=== PATIENT | female | born 1990 | race Caucasian/White ===

== ENCOUNTER 2016-11-24 17:55 | Emergency (ER) | payer MEDICAID ==
--- NOTE | 2016-11-24 19:08 | ED Physician Chart ---
Chief Complaint/HPI - Patient Information Date Seen:: 11/24/16 Time Seen:: 18:15 Chief Complaint:: Abdominal pain since about 4 am today. History of Present Illness:: c/o onset of RUQ abdominal pain since about 4 am today. Pain is characterized as sharp, intermittent and localized. No fever. Pt had nausea. No V/D. Last BM early today. Normal color/consistency. No hematochezia or melena. No lightheadedness. Abdominal pain can be aggravated with movements and improved with rest. Allergies:: Allergies Allergy/AdvReac Type Severity Reaction Status Date / Time No Known Allergies Allergy Verified 10/04/16 21:19 Vitals:: Vital Signs - 8 hr 11/24/16 11/24/16 18:33 18:50 Temp 99.2 F HR 100 81 RR 21 16 BP 170/90 138/93 O2 Sat % 100 Historian:: Patient Family MD/PCP:: unknown LMP:: 11/23/16 Review:: Nurse's Note Reviewed Review of Systems - Review of Systems General/Constitutional: No fever, No chills, No weight loss, No weakness, No diaphoresis, No edema, No loss of appetite Skin: No skin lesions, No rash, No bruising Head: No headache, No light-headedness Eyes: No loss of vision, No pain, No diplopia ENT: No earache, No nasal drainage, No sore throat, No tinnitus Neck: No neck pain, No swelling, No thyromegaly, No stiffness, No mass noted Cardio Vascular: No chest pain, No palpitations, No PND, No orthopnea, No edema Pulmonary: No SOB, No cough, No sputum, No wheezing GI: No nausea, No vomiting, No diarrhea, Pain, No melena, No hematochezia, No constipation, No hematemesis G/U: No dysuria, No frequency, No hematuria Orchestra Leader: No vaginal discharge, No abnormal vaginal bleed Musculoskeletal: No bone or joint pain, No back pain, No muscle pain Endocrine: No polyuria, No polydipsia Psychiatric: No prior psych history Hematopoietic: No bruising, No lymphadenopathy Allergic/Immuno: No urticaria, No angioedema Neurological: No syncope, No focal symptoms, No weakness, No paresthesia, No headache, No seizure, No dizziness, No confusion, No vertigo Past Medical History - Past Medical History Past Medical History: No significant medical hx Family History: Diabetes Melitus (mother, MGM.) Social History: Non Smoker, No Alcohol, No Drug Use, Single, Other (lives with her children.) 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 Surgical History: None Psychiatricy History: None Medication: Reviewed Family Medical History - Family Member Mother History Unknown: Yes Hx Family Diabetes: Yes Physical Exam - Physical Examination General/Constitutional: Awake, Well-developed, well-nourished, Alert, No distress, GCS 15, Non-toxic appearing, Ambulatory Other Gen/Cons comments:: Breathes comfortably, speaks clearly, and ambulates without difficulty. Head: Atraumatic Eyes: Lids, conjuctiva normal, PERRL, EOMI Other Eyes comments:: Anicteric sclera. Skin: Nl inspection, No rash, No skin lesions, No ecchymosis, Well hydrated, No lymphadenopathy ENMT: External ears, nose nl, Nasal exam nl, Lips, teeth, gums nl, Oropharynx nl Neck: Nontender, Full ROM w/o pain, No JVD, No nuchal rigidity, No mass, No stridor Respiratory: Nl effort/Exclusion, Clear to Auscultation, No Wheeze/Rhonchi/Rales Cardio Vascular: RRR, No murmur, gallop, rubs, NL S1 S2 GI: No organomegaly, No hernia, Normal BS's, Nondistended, No mass/bruits, No McBurney tenderness Other GI comments:: Mild vague tenderness at RUQ. No R/G. +/- Crawford's sign. Negative Aguero Fung's or Bhaskar's sign. Abdomen is obese but soft. Pt declined rectal exam as she already feels better. : No CVA tenderness Other comments:: Pt declined pelvic exam as she feels better already. Extremities: No tenderness or effusion, Full ROM, normal strength in all extremities, No edema, Normal digits & nails Neuro/Psych: Alert/oriented (oriented x 3), Judgement/insight normal, Mood normal, Normal gait, No focal deficits Labs/Radiology/EKG Results - Lab Results Results: Laboratory Tests 11/24/16 11/24/16 11/24/16 19:32 19:32 19:32 WBC 13.1 H RBC 4.96 Hgb 14.2 Hct 41.5 MCV 83.6 MCH 28.6 MCHC Differential 34.2 RDW 13.0 Plt Count 370 MPV 8.2 Neutrophils % 59.5 Lymphocytes % 29.2 Monocytes % 6.4 Eosinophils % 4.2 Basophils % 0.7 PT 9.9 INR 1.00 PTT (Actin FS) 23.6 L Sodium 138 Potassium 3.6 Chloride 104 Carbon Dioxide 27.7 Anion Gap 9.9 BUN 14 Creatinine 0.8 Est GFR ( Amer) > 60.0 Est GFR (Non-Af Amer) > 60.0 BUN/Creatinine Ratio 17.5 Glucose 79 Calcium 9.9 Total Bilirubin 0.3 AST 37 ALT 63 H Alkaline Phosphatase 72 Total Protein 8.1 Albumin 4.4 Globulin 3.7 Albumin/Globulin Ratio 1.2 Amylase 38 Lipase 23 Urine Source Urine Color Urine Clarity Urine pH Ur Specific [place] Urine Protein Urine Glucose (UA) Urine Ketones Urine Blood Urine Nitrate Urine Bilirubin Urine Urobilinogen Ur Leukocyte Esterase Urine RBC Urine WBC Ur Epithelial Cells Urine Bacteria Urine Test 11/24/16 11/24/16 19:40 19:40 WBC RBC Hgb Hct MCV MCH MCHC Differential RDW Plt Count MPV Neutrophils % Lymphocytes % Monocytes % Eosinophils % Basophils % PT INR PTT (Actin FS) Sodium Potassium Chloride Carbon Dioxide Anion Gap BUN Creatinine Est GFR ( Amer) Est GFR (Non-Af Amer) BUN/Creatinine Ratio Glucose Calcium Total Bilirubin AST ALT Alkaline Phosphatase Total Protein Albumin Globulin Albumin/Globulin Ratio Amylase Lipase Urine Source CLEAN C Urine Color YELLOW Urine Clarity TURBID H Urine pH 5.5 Ur Specific [place] Urine Protein TRACE Urine Glucose (UA) NEGATIVE Urine Ketones NEGATIVE Urine Blood NEGATIVE Urine Nitrate NEGATIVE Urine Bilirubin NEGATIVE Urine Urobilinogen 0.2 Ur Leukocyte Esterase TRACE H Urine RBC 0-2 Urine WBC 2-5 Ur Epithelial Cells MODERATE Urine Bacteria 1+ H Urine Test NEGATIVE - Radiology Results Results: Abdominal sonogram (Preliminary report): Overall difficult exam due to pt's body habitus. Fatty, enlarged liver. Otherwise, unremarkable. See report for details. ED Septic Shock - . Is Septic Shock (SBP<90, OR Lactate>4 mmol\L) present?: No - <6hrs of presentation: Vital Signs: Vital Signs - 8 hr 11/24/16 11/24/16 18:33 18:50 Temp 99.2 F HR 100 81 RR 21 16 BP 170/90 138/93 O2 Sat % 100 Reassessment (Disposition) - Reassessment Reassessment:: 2130 Pt has been repeatedly evaluated. Pt has been pain free and has been ambulatory without difficulty. No N/V/D. Remaining lab results and abdominal sonographic report just became available. Lab and sonographic findings have been reviewed with pt. All questions answered. Pt requests to go home now and does not want further observation/management in hospital. Aftercare instructions have been given. Reassessment Condition:: Improved - Diagnosis Diagnosis:: Probable biliary colic with spontaneous passage of gallstone, resolved and currently asymptomatic. Urinary tract infection, stable. - Aftercare/Follow up Instructions Aftercare/Follow-Up Instructions:: Refer to Discharge Instructions Notes:: Increase oral fluid. Avoid greasy, fatty, spicy food or dairy products. Abdominal pain instructions given. F/U with Dr. Sanchez or PCP of pt's choice in one day with repeat lab studies: CBC , CMP, urinalysis. Return to ER immediately if condition worsens or if any further questions/problems. Medication Prescribed:: Bactrim DS one tab po q12h D-14 R-0 - Patient Disposition Discharge/Transfer:: Home Time:: 21:40 Condition at Disposition:: Stable, Improved ED Discharge Plan - Patient Disposition Admit/Discharge/Transfer: PT DISCHARGED HOME Instructions: Biliary Colic, Urinary Tract Infection, [id number], Abdominal Pain, [id number] Additional Instructions: follow up with your primary medical doctor ABEL take prescribed medications as ordered
[2016-11-24 19:42] LABS: % BASOPHILS 0.7 % (0.0-2.0); % EOSINOPHILS 4.2 % (0.0-5.0); % LYMPHOCYTES 29.2 % (20.0-50.0); % MONOCYTES 6.4 % (2.0-10.0); % NEUTROPHILS 59.5 % (40.0-80.0); HEMATOCRIT 41.5 % (35.0-45.0); HEMOGLOBIN 14.2 gm/dL (11.7-15.5); MEAN CELL VOLUME 83.6 fl (81-100); MEAN CORPUSCULAR HEMOGLOBIN 28.6 pg (27.0-31.0); MEAN CORPUSCULAR HGB CONC 34.2 pg (28.0-36.0); MEAN PLATELET VOLUME 8.2 fl; NEUTROPHILE ABSOLUTE 7.8 Th/cmm (1.8-8.0); PLATELET COUNT 370 Th/cmm (150-400); RED BLOOD COUNT 4.96 Mil/cmm (3.80-5.10); WHITE BLOOD COUNT 13.1 Th/cmm (4.8-10.8)
[2016-11-24 19:53] LABS: PROTHROMBIN TIME (TEST) 9.9 SECONDS (9.5-11.5)
[2016-11-24 19:56] LABS: ANION GAP 9.9 (7.0-16.0); BUN - UREA NITROGEN 14 mg/dL (7-25); BUN/CREATININE RATIO 17.5; CARBON DIOXIDE 27.7 mEq/L (21.0-31.0); CHLORIDE 104 mEq/L (98-107); CREATININE - SERUM 0.8 mg/dL (0.6-1.2); GLUCOSE 79 mg/dL (70-105); POTASSIUM SERUM 3.6 mEq/L (3.5-5.1); SODIUM SERUM 138 mEq/L (136-145)
[2016-11-24 19:57] LABS: ALB/GLOB RATIO 1.2 (1.0-1.8); ALKALINE PHOSPHATASE 72 U/L (34-104); AMYLASE SERUM 38 U/L (29-103); BILIRUBIN,TOTAL 0.3 mg/dL (0.3-1.0); CALCIUM SERUM 9.9 mg/dL (8.6-10.3); LIPASE 23 U/L (11-82); SGOT 37 U/L (13-39); SGPT/ALT 63 U/L (7-52)
[2016-11-24 19:57] LABS: URINE COLOR YELLOW
[2016-11-24 19:58] LABS: URINE BILIRUBIN NEGATIVE (NEGATIVE); URINE BLOOD NEGATIVE (NEGATIVE); URINE GLUCOSE (UA) NEGATIVE (NEGATIVE); URINE KETONE NEGATIVE (NEGATIVE); URINE PH 5.5; URINE PROTEIN TRACE mg/dL (NEGATIVE); URINE UROBILINOGEN 0.2 E.U./dL (0.2 - 1.0)
[2016-11-24 19:59] LABS: URINE BACTERIA 1+ /hpf (NONE SEEN); URINE EPITHELIAL CELLS MODERATE /lpf (FEW); URINE RBC 0-2 /hpf (0-5)
--- NOTE | 2016-11-25 16:55 | Diagnostic Imaging Report ---
Abdominal ultrasound HISTORY: Pain The liver is enlarged. There is an increase in hepatic parenchymal echogenicity that may be associated with fatty infiltration area the changes should be correlated with liver function tests. No focal lesions. The gallbladder appears normal. No calculi are seen. No biliary dilatation. The pancreas cannot be well seen due to bowel gas. The kidneys appear normal bilaterally. The spleen is normal in size. No other retroperitoneal or intra-abdominal abnormalities. IMPRESSION: 1. Somewhat limited exam due to patient's size and body habitus 2. Hepatomegaly along with parenchymal changes suggesting fatty infiltration. The findings should be correlated with liver function tests.
== END 2016-11-24 21:39 | disposition home or self-care (01) ==
LOC: ER 17:55
DX: N39.0 Urinary tract infection, site not specified (principal)
CPT/HCPCS: 36415-UA; 76700-TC; 80053-TC; 81001-TC; 81025-TC; 82150-TC; 83690-TC; 85025-TC; 85610-TC

== ENCOUNTER 2017-05-19 15:08 | Emergency (ER) | payer MEDICAID ==
[2017-05-19 15:57] LABS: % EOSINOPHILS 4.6 % (0.0-5.0); % LYMPHOCYTES 25.1 % (20.0-50.0); % NEUTROPHILS 64.1 % (40.0-80.0); HEMATOCRIT 42.3 % (35.0-45.0); HEMOGLOBIN 14.3 gm/dL (11.7-15.5); MEAN CELL VOLUME 85.6 fl (81-100); MEAN CORPUSCULAR HGB CONC 33.9 pg (28.0-36.0); MEAN PLATELET VOLUME 8.3 fl; PLATELET COUNT 349 Th/cmm (150-400); RED BLOOD COUNT 4.94 Mil/cmm (3.80-5.10); WHITE BLOOD COUNT 11.4 Th/cmm (4.8-10.8)
[2017-05-19 15:58] LABS: % BASOPHILS 0.2 % (0.0-2.0); NEUTROPHILE ABSOLUTE 7.3 Th/cmm (1.8-8.0)
--- NOTE | 2017-05-19 16:07 | ED Physician Chart ---
Chief Complaint/HPI - Patient Information Date Seen:: 05/19/17 Time Seen:: 15:30 Chief Complaint:: BILATERAL HAND NUMBNESS History of Present Illness:: THIS IS A 26 YO FEMALE WITH INTERMITTENT FOREARM AND HAND TINGLING WITH NUMBNESS GREATER OF THE LEFT THAN THE RIGHT. SHE DENIES DIABETES, ANEMIA, REPETITIVE WORK WITH HER HANDS. SHE DENIES OLD TRAUMA TO THE NECK OR ARMS. SHE STATES THAT SOME MORNING SHE HAS SEVERE NUMBNESS OF BOTH ARMS. Allergies:: Allergies Allergy/AdvReac Type Severity Reaction Status Date / Time No Known Allergies Allergy Verified 10/04/16 21:19 Vitals:: Vital Signs - 8 hr 05/19/17 15:23 Temp 98.3 F HR 113 RR 22 BP 134/80 O2 Sat % 98 Historian:: Patient Review:: Nurse's Note Reviewed Review of Systems - Review of Systems General/Constitutional: No fever, No chills, No weight loss, No weakness, No diaphoresis, No edema, No loss of appetite Skin: No skin lesions, No rash, No bruising Head: No headache, No light-headedness Eyes: No loss of vision, No pain, No diplopia ENT: No earache, No nasal drainage, No sore throat, No tinnitus Neck: No neck pain, No swelling, No thyromegaly, No stiffness, No mass noted Cardio Vascular: No chest pain, No palpitations, No PND, No orthopnea, No edema Pulmonary: No SOB, No cough, No sputum, No wheezing GI: No nausea, No vomiting, No diarrhea, No pain, No melena, No hematochezia, No constipation, No hematemesis G/U: No dysuria, No frequency, No hematuria Musculoskeletal: No bone or joint pain, No back pain, No muscle pain Endocrine: No polyuria, No polydipsia Psychiatric: No prior psych history, No depression, No anxiety, No suicidal ideation Hematopoietic: No bruising, No lymphadenopathy Allergic/Immuno: No urticaria, No angioedema Neurological: No syncope, No focal symptoms, No weakness, Paresthesia (BOTH ARMS PARESTHESIA), No headache, No seizure, No dizziness, No confusion, No vertigo Past Medical History - Past Medical History Obtainable: Yes Past Medical History: No significant medical hx Family History: None Social History: Non Smoker, No Alcohol, No Drug Use, Employed Surgical History: None Psychiatricy History: None Medication: Reviewed Family Medical History - Family Member Mother History Unknown: Yes Hx Family Diabetes: Yes Physical Exam - Physical Examination General/Constitutional: Awake, Well-developed, well-nourished, Alert, No distress, GCS 15, Non-toxic appearing, Ambulatory Head: Atraumatic Eyes: Lids, conjuctiva normal, PERRL, EOMI Skin: Nl inspection, No rash, No skin lesions, No ecchymosis, Well hydrated, No lymphadenopathy ENMT: External ears, nose nl, Nasal exam nl, Lips, teeth, gums nl Neck: Nontender, Full ROM w/o pain, No JVD, No nuchal rigidity, No bruit, No mass, No stridor Respiratory: Nl effort/Exclusion, Clear to Auscultation, No Wheeze/Rhonchi/Rales Cardio Vascular: RRR, No murmur, gallop, rubs, NL S1 S2 GI: No tenderness/rebounding/guarding, No organomegaly, No hernia, Normal BS's, Nondistended, No mass/bruits, No McBurney tenderness : No CVA tenderness Extremities: No tenderness or effusion, Full ROM, normal strength in all extremities, No edema, Normal digits & nails Neuro/Psych: Alert/oriented, DTR's symmetric, Normal sensory exam, Normal motor strength, Judgement/insight normal, Mood normal, Normal gait, No focal deficits Misc: normal gait, Normal back, No paraspinal tenderness Labs/Radiology/EKG Results - Lab Results Results: Abnormal Lab Results 05/19/17 05/19/17 05/19/17 15:49 15:49 15:49 WBC 11.4 H RBC 4.94 Hgb 14.3 Hct 42.3 MCV 85.6 MCH 29.0 MCHC Differential 33.9 RDW 13.0 Plt Count 349 MPV 8.3 Neutrophils % 64.1 Lymphocytes % 25.1 Monocytes % 6.0 Eosinophils % 4.6 Basophils % 0.2 Sodium 132 L Potassium 3.8 Chloride 103 Carbon Dioxide 24.2 Anion Gap 8.6 BUN 17 Creatinine 0.8 Est GFR ( Amer) > 60.0 Est GFR (Non-Af Amer) > 60.0 BUN/Creatinine Ratio 21.3 Glucose 125 H Hemoglobin A1c % 5.5 Calcium 9.5 Total Bilirubin 0.4 AST 28 ALT 38 Alkaline Phosphatase 81 Troponin I Total Protein 7.6 Albumin 4.5 Globulin 3.1 Albumin/Globulin Ratio 1.5 05/19/17 15:49 WBC RBC Hgb Hct MCV MCH MCHC Differential RDW Plt Count MPV Neutrophils % Lymphocytes % Monocytes % Eosinophils % Basophils % Sodium Potassium Chloride Carbon Dioxide Anion Gap BUN Creatinine Est GFR ( Amer) Est GFR (Non-Af Amer) BUN/Creatinine Ratio Glucose Hemoglobin A1c % Calcium Total Bilirubin AST ALT Alkaline Phosphatase Troponin I < 0.01 L Total Protein Albumin Globulin Albumin/Globulin Ratio - Radiology Results Results: CHEST X-RAY = NAD Comments:: ULTRASOUND OF THE UPPER EXTREMITIES ARTERIAL FLOW. = NAD ED Septic Shock - . Is Septic Shock (SBP<90, OR Lactate>4 mmol\L) present?: No - <6hrs of presentation: Vital Signs: Vital Signs - 8 hr 05/19/17 15:23 Temp 98.3 F HR 113 RR 22 BP 134/80 O2 Sat % 98 Reassessment (Disposition) - Reassessment Reassessment Condition:: Improved - Diagnosis Diagnosis:: urinary tract infection - Aftercare/Follow up Instructions Aftercare/Follow-Up Instructions:: Counseled pt regarding lab results/diagnosis & need follow up, Refer to Discharge Instructions, Counseled pt & family regarding lab results/diagnosis & need follow up - Patient Disposition Discharge/Transfer:: Home Condition at Disposition:: Improved ED Discharge Plan - Patient Disposition Admit/Discharge/Transfer: PT DISCHARGED HOME Condition at Disposition: Stable Prescriptions: Azithromycin [Zithromax] 250 mg PO DAILY #1 tab Ciprofloxacin HCl [Cipro] 250 mg PO BID #20 tablet Gabapentin 600 mg PO Q6H PRN #20 tablet PRN Reason: arm discomfort Instructions: Paresthesia, Urinary Tract Infection Accepting Physician: Desmond Ramos [Provisional Staff] - 1-3 Days
[2017-05-19 16:15] LABS: ALB/GLOB RATIO 1.5 (1.0-1.8); ALKALINE PHOSPHATASE 81 U/L (34-104); ANION GAP 8.6 (7.0-16.0); BILIRUBIN,TOTAL 0.4 mg/dL (0.3-1.0); BUN - UREA NITROGEN 17 mg/dL (7-25); BUN/CREATININE RATIO 21.3; CALCIUM SERUM 9.5 mg/dL (8.6-10.3); CARBON DIOXIDE 24.2 mEq/L (21.0-31.0); CHLORIDE 103 mEq/L (98-107); CREATININE - SERUM 0.8 mg/dL (0.6-1.2); GLUCOSE 125 mg/dL (70-105); POTASSIUM SERUM 3.8 mEq/L (3.5-5.1); SGOT 28 U/L (13-39); SGPT/ALT 38 U/L (7-52); SODIUM SERUM 132 mEq/L (136-145)
[2017-05-19 16:30] LABS: INR 0.95 (0.5-1.4); PROTHROMBIN TIME (TEST) 9.9 SECONDS (9.5-11.5)
[2017-05-19 16:32] LABS: CHOLESTEROL 187 mg/dL (<200); TRIGLYCERIDES 385 mg/dL (<150)
[2017-05-19 16:46] LABS: URINE BILIRUBIN NEGATIVE (NEGATIVE); URINE BLOOD NEGATIVE (NEGATIVE); URINE COLOR YELLOW; URINE GLUCOSE (UA) NEGATIVE (NEGATIVE); URINE KETONE NEGATIVE (NEGATIVE); URINE PROTEIN 30 mg/dL (NEGATIVE); URINE UROBILINOGEN 0.2 E.U./dL (0.2 - 1.0)
[2017-05-19 16:47] LABS: URINE BACTERIA MANY /hpf (NONE SEEN); URINE EPITHELIAL CELLS MANY /lpf (FEW); URINE RBC 0-2 /hpf (0-5)
--- NOTE | 2017-05-20 10:04 | Diagnostic Imaging Report ---
CHEST X-RAY: AP view INDICATION: Shortness of breath COMPARISON: None FINDINGS: There is no focal consolidation or pleural effusions The heart is normal in size. The osseous structures demonstrate no acute abnormalities. IMPRESSION: No acute cardiopulmonary disease. No evidence of CHF.
--- NOTE | 2017-05-20 10:38 | Diagnostic Imaging Report ---
Cervical spine 3 views Indication: pain Comparison: none Findings: No evidence of an acute compression fracture or subluxation. Minimal degenerative changes are seen with minimal disc space loss of height at C4/C5. The atlantodental articulation is preserved. No prevertebral soft tissue swelling. Impression: No evidence of an acute compression fracture or subluxation. Minimal degenerative changes If clinically indicated follow up exam such as MRI may be obtained for further assessment. In the setting of trauma, if clinical symptoms persist and there is continued concern for an occult fracture, follow up exams in 5-7 days is suggested.
--- NOTE | 2017-05-20 10:54 | Diagnostic Imaging Report ---
Bilateral upper extremity arterial Doppler study HISTORY: Pain COMPARISON: None Technique: Longitudinal and transverse sonographic images of the bilateral upper extremity arteries were obtained with doppler analysis. FINDINGS: There is patency of bilateral subclavian, axillary, brachial, radial, and ulnar arteries. Primarily triphasic and biphasic flow is demonstrated. No evidence of significant focal atherosclerotic vascular disease. No evidence of occlusion. IMPRESSION: No evidence of significant focal atherosclerotic vascular disease. Primarily triphasic and biphasic flow was demonstrated throughout the bilateral upper extremities. No evidence of occlusion.
== END 2017-05-19 18:00 | disposition home or self-care (01) ==
LOC: ER 15:08
DX: R20.0 Anesthesia of skin (principal)
CPT/HCPCS: 99285; 96372; 93005; 93930; 71010; 72040; 84484; 36415; 84443; 86592; 85025; 85610; 87086; 81001; 83036; 81025; 80053; 80061; J0696

== ENCOUNTER 2018-07-29 19:55 | Emergency (ER) | payer MEDICAID ==
--- NOTE | 2018-07-29 20:38 | ED Physician Chart ---
ED Chief Complaint/HPI - Patient Information Date Seen:: 07/29/18 Time Seen:: 20:15 Chief Complaint:: lt ankle pain History of Present Illness:: 27 yr old female s/p fall lt ankle pain Allergies:: Allergies Allergy/AdvReac Type Severity Reaction Status Date / Time No Known Allergies Allergy Verified 10/04/16 21:19 Vitals:: Vital Signs - 8 hr 07/29/18 20:03 Temp 97.5 F HR 112 RR 18 BP 152/93 O2 Sat % 98 ED Review of Systems - Review of Systems General/Constitutional: No fever, No chills, No weight loss, No weakness, No diaphoresis, No edema, No loss of appetite Skin: No skin lesions, No rash, No bruising Head: No headache, No light-headedness Eyes: No loss of vision, No pain, No diplopia ENT: No earache, No nasal drainage, No sore throat, No tinnitus Neck: No neck pain, No swelling, No thyromegaly, No stiffness, No mass noted Cardio Vascular: No chest pain, No palpitations, No PND, No orthopnea, No edema Pulmonary: No SOB, No cough, No sputum, No wheezing GI: No nausea, No vomiting, No diarrhea, No pain, No melena, No hematochezia, No constipation, No hematemesis G/U: No dysuria, No frequency, No hematuria Musculoskeletal: Bone or joint pain Endocrine: No polyuria, No polydipsia Psychiatric: No prior psych history, No depression, No anxiety, No suicidal ideation Hematopoietic: No bruising, No lymphadenopathy Allergic/Immuno: No urticaria, No angioedema Neurological: No syncope, No focal symptoms, No weakness, No paresthesia, No headache, No seizure, No dizziness, No confusion, No vertigo ED Past Medical History - Past Medical History Past Medical History: No significant medical hx Family Medical History - Family Member Mother History Unknown: Yes Hx Family Diabetes: Yes Father Hx Family Hypertension: Yes ED Physical Exam - Physical Examination General/Constitutional: Awake, Well-developed, well-nourished, Alert, No distress, GCS 15, Non-toxic appearing, Ambulatory Head: Atraumatic Eyes: Lids, conjuctiva normal, PERRL, EOMI Skin: Nl inspection, No rash, No skin lesions, No ecchymosis, Well hydrated, No lymphadenopathy ENMT: External ears, nose nl, Nasal exam nl, Lips, teeth, gums nl Neck: Nontender, Full ROM w/o pain, No JVD, No nuchal rigidity, No bruit, No mass, No stridor Respiratory: Nl effort/Exclusion, Clear to Auscultation, No Wheeze/Rhonchi/Rales Cardio Vascular: RRR, No murmur, gallop, rubs, NL S1 S2 GI: No tenderness/rebounding/guarding, No organomegaly, No hernia, Normal BS's, Nondistended, No mass/bruits, No McBurney tenderness : No CVA tenderness Extremities: No tenderness or effusion, Full ROM, normal strength in all extremities, No edema, Normal digits & nails Other Extremities comments:: lt lat ankle tend Neuro/Psych: Alert/oriented, DTR's symmetric, Normal sensory exam, Normal motor strength, Judgement/insight normal, Mood normal, Normal gait, No focal deficits Misc: Normal back, No paraspinal tenderness ED Assessment - Assessment General Assessment: lt ankle sprain ED Septic Shock - . Is Septic Shock (SBP<90, OR Lactate>4 mmol\L) present?: No - <6hrs of presentation: Vital Signs: Vital Signs - 8 hr 07/29/18 20:03 Temp 97.5 F HR 112 RR 18 BP 152/93 O2 Sat % 98 ED Reassessment (Disposition) - Reassessment Reassessment Condition:: Unchanged - Diagnosis Diagnosis:: lt ankle pain - Aftercare/Follow up Instructions Aftercare/Follow-Up Instructions:: Counseled pt regarding lab results/diagnosis & need follow up - Patient Disposition Discharge/Transfer:: Home Condition at Disposition:: Stable
--- NOTE | 2018-07-30 08:28 | Diagnostic Imaging Report ---
EXAM: Left ankle joint HISTORY: Status post fall COMPARISON: None FINDINGS: Multiple views of the left ankle reviewed. The study demonstrates no evidence of fracture or dislocation. The ankle mortise intact. There is no evidence of soft tissue swelling. The tallocalcaneal articulation is intact. IMPRESSION: Normal examination of left ankle joint.
== END 2018-07-29 21:22 | disposition home or self-care (01) ==
LOC: ER 19:55
DX: S93.402A Sprain of unspecified ligament of left ankle, initial encounter (principal); W19.XXXA Unspecified fall, initial encounter; Y93.89 Activity, other specified; Y92.89 Other specified places as the place of occurrence of the external cause; Y99.8 Other external cause status
CPT/HCPCS: 73610-TC; 81025-TC; Z7502